=== PATIENT | male | born 1955 | race Caucasian/White ===

== ENCOUNTER 2020-09-09 17:27 | Emergency (ER) | payer OTHER ==
[2020-09-09 18:29] LABS: HEMOGLOBIN 15.9 gm/dl (14.0-17.5); RED BLOOD COUNT 5.06 M/UL (4.20-5.50)
[2020-09-09 18:45] LABS: BUN/CREATININE RATIO 18 (0-10)
== END 2020-09-09 23:37 | disposition home or self-care (01) ==
LOC: ER1 17:27
PROVIDERS: Physician Assistant
DX: I62.00 Nontraumatic subdural hemorrhage, unspecified (principal)
CPT/HCPCS: 70496; 80053; 81001; 82550; 82553; 83874; 84439; 84443; 84484; 85025; 85610; 93005; 99285; Q9963